=== PATIENT | female | born 1975 | race Caucasian/White ===

== ENCOUNTER 2021-02-09 02:32 | Emergency (ER) | payer OTHER ==
[2021-02-09 03:10] VITALS: BP 153/86; PULSE 86; TEMP 98.2; BMI 51.6
[2021-02-09] MEDS ORDERED: IBUPROFEN 600 MG TABLET (FP) PO ONE ×2 (04:51→04:59)
== END 2021-02-09 05:04 | disposition home or self-care (01) ==
LOC: JER 02:32
DX: S62.002A Unspecified fracture of navicular [scaphoid] bone of left wrist, initial encounter for closed fracture (principal)
CPT/HCPCS: 73110-TC-LT-FY; 73130-TC-LT-FY; 99284-25